=== PATIENT | female | born 1970 ===

== ENCOUNTER 2017-05-07 20:51 | Emergency (ER) | payer BC, OTHER ==
[2017-05-07] MEDS ORDERED: Albuterol-Ipratrop 3 mg / 0.5 (3 ml) UD INH STA (21:53)
--- NOTE | 2017-05-07 21:56 | ED PDOC ---
HPI: SOB/CHF/COPD Time Seen by Provider: 05/07/17 21:53 Chief Complaint (Nursing): Flu-like Symptoms Chief Complaint (Provider): Shortness of Breath History Per: Patient History/Exam Limitations: no limitations Onset/Duration Of Symptoms: Days (x4) Current Symptoms Are (Timing): Still Present Associated Symptoms: Fever Additional Complaint(s): 46 year old female with a past medical history of asthma presents to the ED complaining of difficulty breathing. The patient states that she took albuterol at home before presenting to the emergency room. Patient also notes fever. She reports that she took advil and sinus release at home for relief of symptoms. PMD: FAMILY PROVIDER,NO Past Medical History Reviewed: Historical Data, Nursing Documentation, Vital Signs Vital Signs: Last Vital Signs Temp 98.0 F 05/07/17 21:00 Pulse 84 05/07/17 21:00 Resp 16 05/07/17 21:00 BP 142/86 05/07/17 21:00 Pulse Ox 100 05/07/17 22:01 - Medical History PMH: Asthma - Surgical History Other surgeries: Bladder surgery - Family History Family History: States: Unknown Family Hx - Social History Current smoker - smoking cessation education provided: No Ex-Smoker (has not smoked in the last 12 months): No Alcohol: None Drugs: Denies - Allergies Allergies/Adverse Reactions: Allergies Allergy/AdvReac Type Severity Reaction Status Date / Time No Known Allergies Allergy Verified 05/07/17 21:00 Review of Systems ROS Statement: Except As Marked, All Systems Reviewed And Found Negative Constitutional: Positive for: Fever Respiratory: Positive for: Shortness of Breath Physical Exam - Reviewed Nursing Documentation Reviewed: Yes Vital Signs Reviewed: Yes - Physical Exam Appears: Positive for: Non-toxic, No Acute Distress Head Exam: Positive for: NORMAL INSPECTION Skin: Positive for: Normal Color, Warm, Dry. Negative for: Rash Eye Exam: Positive for: Normal appearance, EOMI, PERRL ENT: Positive for: Normal ENT Inspection. Negative for: Nasal Congestion, Tonsillar Exudate, Tonsillar Swelling Cardiovascular/Chest: Positive for: Regular Rate, Rhythm, Chest Non Tender. Negative for: Tachycardia Respiratory: Positive for: Normal Breath Sounds. Negative for: Rales, Rhonchi, Wheezing, Respiratory Distress Neurologic/Psych: Positive for: Alert, Oriented, Gait - ECG O2 Sat by Pulse Oximetry: 100 (RA) Pulse Ox Interpretation: Normal Medical Decision Making Medical Decision Makin Initial Impression 46 y/o female presenting with difficultly breathing Initial Plan: * CXR * Albuterol 9mL INH * Solumedrol 125mg IM * Peak Flow * Reevaluation Pt reports continued SOB on re-evaluation. Case discussed with Dr. Holm. Additional labs and CT chest ordered. Documented by Sarahy Blair acting as a scribe for Tran Cheema PA-C. All medical record entries made by the Scribe were at my direction and personally dictated by me. I have reviewed the chart and agree that the record accurately reflects my personal performance of the history, physical exam, medical decision making, and the department course for this patient. I have also personally directed, reviewed, and agree with the discharge instructions and disposition. Disposition - Clinical Impression Clinical Impression: SOB (shortness of breath) - Patient ED Disposition Is Patient to be Admitted: Transfer of Care - Disposition Disposition: Transfer of Care Disposition Time: 23:41 Condition: STABLE Forms: [employer] [facility] [employer] (Micronesian)
[2017-05-07] MEDS ORDERED: Albuterol-Ipratrop 3 mg / 0.5 (3 ml) UD ONE ×2 (22:05→22:07)
[2017-05-07] MEDS ORDERED: Magnesium Sulfate 2 gm/50 ml 2 GM/50 ML BAG IVPB STA (23:47)
--- NOTE | 2017-05-07 23:47 | ED PDOC ---
- Laboratory Results Result Diagrams: 05/07/17 00:30 05/07/17 00:30 - ECG O2 Sat by Pulse Oximetry: 100 (RA) Medical Decision Making Medical Decision Making: Case was signed out to blurb writer from [facility] pending CT and labs. 12:45 - Patient given mag sulfate, CT chest pending 1:30 - patient feels much better after meds given, tylenol 650 PO given for mild headache. Patient went to CT CT: no acute finding 2:20 - Patient is aware of all diagnostic testing results, all questions answered. Prescriptions provided for Ventolin inhaler and prednisone. Patient was advised to follow up on Wednesday with primary doctor. Disposition - Clinical Impression Clinical Impression: SOB (shortness of breath), Asthma exacerbation - POA Present On Arrival: None - Disposition Referrals: Gisela Aguilera [Family Provider] - Disposition: Routine/Home Disposition Time: 02:21 Condition: IMPROVED Additional Instructions: Take prescription medications as directed. Follow up Wednesday with primary doctor. Prescriptions: Albuterol HFA [Ventolin HFA 90 mcg/actuation (8 g)] 1 puff IH Q6 PRN #1 inhaler PRN Reason: Cough Prednisone 50 mg PO DAILY #5 tablet Instructions: Asthma (ED) Forms: [employer] (Qatari) Results - Lab Results Lab Results: 05/07/17 05/07/17 05/07/17 00:30 00:30 00:30 WBC 5.4 RBC 4.33 Hgb 12.7 Hct 38.8 MCV 89.8 MCH 29.4 MCHC 32.8 L RDW 14.3 Plt Count 217 MPV 9.9 Neut % (Auto) 86.9 H Lymph % (Auto) 8.1 L Lea % (Auto) 3.7 Eos % (Auto) 0.9 Baso % (Auto) 0.4 Neut # 4.7 Lymph # 0.4 L Lea # 0.2 Eos # 0.0 Baso # 0.0 Neutrophils % (Manual) Pending Lymphocytes % (Manual) Pending Monocytes % (Manual) Pending Platelet Estimate Pending pO2 VBG pH VBG pCO2 VBG HCO3 VBG Total CO2 VBG O2 Sat (Calc) VBG Base Excess VBG Potassium Sodium 141 Chloride 105 Glucose Lactate FiO2 Potassium 3.5 L Carbon Dioxide 26 Anion Gap 14 BUN 8 Creatinine 0.6 L Est GFR ( Amer) > 60 Est GFR (Non-Af Amer) > 60 Random Glucose 131 H Calcium 8.9 Total Bilirubin 0.2 AST 29 ALT 38 Alkaline Phosphatase 112 Total Protein 8.0 Albumin 4.1 Globulin 3.9 Albumin/Globulin Ratio 1.1 Venous Blood Potassium Influenza Typ A,B (EIA) Negative for flu a/b 05/07/17 00:27 WBC RBC Hgb Hct MCV MCH MCHC RDW Plt Count MPV Neut % (Auto) Lymph % (Auto) Lea % (Auto) Eos % (Auto) Baso % (Auto) Neut # Lymph # Lea # Eos # Baso # Neutrophils % (Manual) Lymphocytes % (Manual) Monocytes % (Manual) Platelet Estimate pO2 23 L VBG pH 7.37 VBG pCO2 47 VBG HCO3 24.3 VBG Total CO2 28.6 H VBG O2 Sat (Calc) 47.1 VBG Base Excess 1.3 VBG Potassium 3.4 L Sodium 140.0 Chloride 104.0 Glucose 128 H Lactate 1.5 FiO2 21.0 Potassium Carbon Dioxide Anion Gap BUN Creatinine Est GFR ( Amer) Est GFR (Non-Af Amer) Random Glucose Calcium Total Bilirubin AST ALT Alkaline Phosphatase Total Protein Albumin Globulin Albumin/Globulin Ratio Venous Blood Potassium 3.4 L Influenza Typ A,B (EIA)
[2017-05-08 00:32] VITALS: BP 122/65; PULSE 94; RESP 20; TEMP 97.9
[2017-05-08 00:34] LABS: VENOUS BLOOD GAS BASE EXCESS 1.3 mmol/L (0.0-2.0); VENOUS BLOOD GAS PCO2 47 mmHg (40-60); VENOUS BLOOD GAS PO2 23 mm/Hg (30-55); VENOUS BLOOD PH 7.37 (7.32-7.43)
[2017-05-08] MEDS ORDERED: Magnesium Sulfate 2 gm/50 ml 2 GM/50 ML BAG ONE (00:34)
[2017-05-08 00:40] LABS: BASO % 0.4 % (0.0-2.0); EOS % 0.9 % (0.0-4.0); HEMOGLOBIN 12.7 g/dL (12.0-16.0); LYMPH # 0.4 K/uL (1.0-4.3); LYMPH % 8.1 % (20.0-40.0); MEAN CELL VOLUME 89.8 fl (81.0-99.0); MEAN CORPUSCULAR HEMOGLOBIN 29.4 pg (27.0-31.0); MEAN CORPUSCULAR HGB CONC 32.8 g/dL (33.0-37.0); MEAN PLATELET VOLUME 9.9 fl (7.2-11.7); MONO # 0.2 K/uL (0.0-0.8); MONO % 3.7 % (0.0-10.0); NEUT # 4.7 K/uL (1.8-7.0); NEUT % 86.9 % (50.0-75.0); NRBC % 0.3 % (0.0-0.0); PLATELET COUNT 217 K/uL (130-400); RBC 4.33 Mil/uL (3.80-5.20); RED CELL DISTRIBUTION WIDTH 14.3 % (11.5-14.5); WHITE BLOOD COUNT 5.4 K/uL (4.8-10.8)
[2017-05-08] MEDS ORDERED: Sodium Chloride 0.9% 50 ML IV ONE (00:50)
[2017-05-08] MEDS ORDERED: Iodixanol 320 MG/ML 100 ML BOTTLE IV ONE (00:50)
[2017-05-08 01:06] LABS: ALB/GLOB RATIO 1.1 (1.0-2.1); ALBUMIN 4.1 g/dL (3.5-5.0); ALT/SGPT 38 U/L (9-52); AST/SGOT 29 U/L (14-36); BLOOD UREA NITROGEN 8 mg/dl (7-17); CALCIUM 8.9 mg/dL (8.4-10.2); GFR AFRICAN-AMERICAN > 60; GFR NON-AFRICAN AMERICAN > 60
[2017-05-08 01:58] VITALS: O2SAT 100
[2017-05-08 07:19] LABS: BANDS 1 % (0-2); LYMPHOCYTE 7 % (20-50); MONOCYTE 3 % (0-10); NEUTROPHIL 88 % (42-75); TOTAL CELLS COUNTED 100
[2017-05-08 07:20] LABS: EOSINOPHIL 1 % (0-7); PLATELET ESTIMATE NORMAL (NORMAL)
--- NOTE | 2017-05-08 10:28 | RAD ---
HISTORY: SOB, asthma COMPARISON: No prior. TECHNIQUE: Chest PA and lateral FINDINGS: LUNGS: No active pulmonary disease. PLEURA: No significant pleural effusion identified. No pneumothorax apparent. CARDIOVASCULAR: Normal. OSSEOUS STRUCTURES: Minor chronic appearing anterior stature loss of few lower thoracic segments VISUALIZED UPPER ABDOMEN: Metallic clips right upper quadrant of the abdomen consistent with prior cholecystectomy. OTHER FINDINGS: None. IMPRESSION: No active disease.
--- NOTE | 2017-05-08 12:48 | CT ---
PROCEDURE: CT Chest with contrast (Pulmonary Angiogram) HISTORY: SOB COMPARISON: Correlation made with chest radiograph 05/07/2017. . TECHNIQUE: Contiguous helical/transaxial computed tomography images were obtained of the chest in the pulmonary arterial phase of enhancement. Coronal and sagittal reformatted images were created and reviewed. Intravenous contrast dose: 95 cc Visipaque 320 Radiation dose: Total exam DLP = 424.46 in the mGy-cm. This CT exam was performed using one or more of the following dose reduction techniques: Automated exposure control, adjustment of the mA and/or kV according to patient size, and/or use of iterative reconstruction technique. FINDINGS: PULMONARY ARTERIES: The visualized pulmonary trunk, right and left main, lobar, segmental and proximal subsegmental branches of the pulmonary arteries are well opacified with no definitive filling defects seen to suggest acute pulmonary embolus. AORTA: No acute findings. No thoracic aortic aneurysm. LUNGS: Mild passive/dependent type atelectasis both posterior lower lung lópez. Lung lópez are otherwise clear. PLEURAL SPACES: Unremarkable. No effusion or pneumothorax. HEART: Unremarkable. No cardiomegaly. No significant pericardial effusion. LYMPH NODES: No lymphadenopathy. There is a small to medium size hiatal hernia with wall thickening of the distal esophagus which is likely due to protrusion of gastric mucosa however esophagitis or other intrinsic/invasive wall lesion not excluded. Clinic correlation recommended to determine whether endoscopy followup is required. BONES, CHEST WALL: Unremarkable. No fracture or destructive lesion OTHER FINDINGS: Unremarkable. IMPRESSION: No evidence of acute pulmonary embolus. small to medium size hiatal hernia with wall thickening of the distal esophagus which is likely due to protrusion of gastric mucosa however esophagitis or other intrinsic/invasive wall lesion not excluded. Clinic correlation recommended to determine whether endoscopy followup is required. This report was placed in PA review folder for followup
== END 2017-05-08 02:30 | disposition home or self-care (01) ==
LOC: H.ER 20:51
DX: J45.901 Unspecified asthma with (acute) exacerbation (principal)
CPT/HCPCS: 71046; 71275; 80053; 81025; 82803; 85025; 87040; 87804; 94150; 94640; 96365; 96372; 99285; J2930; Q9967